=== PATIENT | male | born 1955 | race Caucasian/White ===

== ENCOUNTER 2017-02-15 09:15 | Emergency (ER) | payer OTHER, BC ==
[2017-02-15 09:23] VITALS: BP 144/90; PULSE 67; TEMP 97.7; BMI 28.7
[2017-02-15] MEDS ORDERED: IBUPROFEN 600 MG TABLET (FP) PO ONE ×2 (10:24→10:39)
--- NOTE | 2017-02-15 10:44 | PDOC ---
History of Present Illness - General Chief Complaint: Pain Stated Complaint: RT SHOULDER PAIN Time Seen by Provider: 02/15/17 10:02 History Source: Patient Exam Limitations: No Limitations - History of Present Illness Initial Comments: 02/15/17 10:39 Was lifting heavy boxes of copy paper, and felt an acute onset of pain in his right shoulder. Has known rotator cuff injury for many years, but has not bothered him significantly. States with this movement re-exacerbated this injury , felt a snap but feels has strength to his upper arm. Pain is primarily in the shoulder capsule. No neck pain, no other injury. Occurred: reports: just prior to arrival Severity: reports: mild, moderate Pain Location: reports: upper extremity (shoulder ) Modifying Factors: improves with: None, cold therapy Past History - Travel Traveled outside of the country in the last 30 days: No Close contact w/someone who was outside of country & ill: No - Past Medical History Allergies/Adverse Reactions: Allergies Allergy/AdvReac Type Severity Reaction Status Date / Time No Known Allergies Allergy Verified 02/15/17 09:23 Home Medications: Ambulatory Orders Naproxen [Naprosyn -] 500 mg PO BID #30 tablet 02/15/17 GI Disorders: Yes (gerd) HTN: Yes - Surgical History Abdominal Surgery: Yes (hernia 2000) Cholecystectomy: Yes (02/2012) - Immunization History Td Vaccination: Yes Immunization Up to Date: Yes - Suicide/Smoking/Psychosocial Hx Smoking Status: Yes Smoking History: Never smoked Have you smoked in the past 12 months: No Number of Cigarettes Smoked Daily: 0 If you are a former smoker, when did you quit?: 5 years ago Hx Alcohol Use: Yes (SOCIAL) Drug/Substance Use Hx: No Substance Use Type: None Review of Systems - Review of Systems Able to Perform ROS?: Yes Is the patient limited Yi proficient: Yes Constitutional: Yes: Symptoms Reported, See HPI, Malaise. No: Fever, Loss of Appetite HEENTM: No: Symptoms Reported Respiratory: No: Symptoms reported Musculoskeletal: Yes: Symptoms Reported, See HPI, Joint Pain, Joint Swelling, Other (shoulder right) Integumentary: No: Symptoms Reported Neurological: Yes: Symptoms reported, See HPI *Physical Exam - Vital Signs Last Vital Signs Temp Pulse Resp BP Pulse Ox 97.7 F 67 20 144/90 98 02/15/17 09:20 02/15/17 09:20 02/15/17 09:20 02/15/17 09:20 02/15/17 09:20 - Physical Exam General Appearance: Yes: Appropriately Dressed, Apparent Distress HEENT: positive: VALENTE, Normal ENT Inspection, TMs Normal, Pharynx Normal Neck: positive: Supple. negative: Tender Respiratory/Chest: positive: Lungs Clear Cardiovascular: positive: Regular Rhythm, Regular Rate Musculoskeletal: positive: Normal Inspection. negative: CVA Tenderness Extremity: positive: Normal Capillary Refill, Normal Inspection. negative: Normal Range of Motion (range of motion secondary to tenderness against resistance to both abduction and forward flexion of right shoulder. Has no tenderness to bicep and has good strength in contraction. Strong grasp, flexion and extension to fingers and elbow. Neurovascular intact. Has no crepitus or step-offs along clavicle or scapula. 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 II-XII NML intact, Fully Oriented, Alert, Normal Mood/ Affect, Normal Response, Motor Strength 5/5 Progress Note - Progress Note Progress Note: Right shoulder sprain *DC/Admit/Observation/Transfer Diagnosis at time of Disposition: Shoulder strain - Discharge Dispostion Disposition: HOME Condition at time of disposition: Stable Admit: No - Referrals Referrals: Dede Martínez [Primary Care Provider] - Mu Jensen MD [Staff Physician] - - Patient Instructions Printed Discharge Instructions: DI for Shoulder Sprain Additional Instructions: Rest, ice to area on and off for 15 minutes 4-6 times a day Avoid heavy lifting or exercise until pain and swelling is resolved or until further directed Keep area highly elevated to reduce swelling Use splints/Javier wrap as directed Followup with orthopedist in one to 2 days if not improving, if significantly improved may wait one week for followup with orthopedist May use ibuprofen 2-200 mg tablets every 6 hours as needed for pain - Post Discharge Activity Forms/Work/School Notes: Back to Work
== END 2017-02-15 10:53 | disposition home or self-care (01) ==
LOC: JERFT 09:15
DX: S46.801A Unspecified injury of other muscles, fascia and tendons at shoulder and upper arm level, right arm, initial encounter (principal); X50.0XXA Overexertion from strenuous movement or load, initial encounter; Y93.89 Activity, other specified; Y92.59 Other trade areas as the place of occurrence of the external cause; Y99.0 Civilian activity done for income or pay
CPT/HCPCS: 99281-25